=== PATIENT | female | born 1995 | race Two or more races ===

== ENCOUNTER 2018-05-15 16:33 | Observation (INO) | payer OTHER ==
[~2018-05-15] VITALS: Ht 160 cm; Wt 51.1 kg
[2018-05-15 17:17] LABS: BASOPHILS # (AUTO) 0.02 x10^3/uL (0-0.1); BASOPHILS % (AUTO) 0 % (0-1); EOSINOPHILS # (AUTO) 0.08 x10^3/uL (0-0.4); EOSINOPHILS % (AUTO) 2 % (1-7); LYMPHOCYTES # (AUTO) 1.14 x10^3/uL (1-3.4); LYMPHOCYTES % (AUTO) 32 % (22-44); MD NO; MEAN CORPUSCULAR HEMOGLOBIN 31.4 pg (27.0-34.8); MEAN CORPUSCULAR HGB CONC 34.5 g/dL (32.4-35.8); MEAN CORPUSCULAR VOLUME 91.2 fL (80-100); MEAN PLATELET VOLUME 6.8 fL (7.4-10.4); MONOCYTES # (AUTO) 0.24 x10^3/uL (0.2-0.8); MONOCYTES % (AUTO) 7 % (2-9); NEUTROPHILS # (AUTO) 2.14 x10^3/uL (1.8-6.8); NEUTROPHILS % (AUTO) 59 % (42-75); PLATELET COUNT 237 x10^3/uL (130-400); RED BLOOD COUNT 3.95 x10^6/uL (3.82-5.3); RED CELL DISTRIBUTION WIDTH 13.3 % (9.6-15.2)
[2018-05-15 17:28] LABS: ANION GAP 7 mmol/L (5-15); CALCIUM 8.4 mg/dL (8.5-10.1); CHLORIDE 108 mmol/L (98-107); CREATININE 0.69 mg/dL (0.55-1.02)
[2018-05-15] MEDS ORDERED: SODIUM CHLORIDE FLUSH 10ML SYR IVF ONE (17:30)
[2018-05-15] MEDS ORDERED: SODIUM CHLORIDE 0.9% 1,000ML IVBOLUS ONE (17:30)
[2018-05-15 17:32] LABS: MICROSCOPIC NOT IND
[2018-05-15 17:34] LABS: CULTURE INDICATED? NO
[2018-05-15] MEDS ORDERED: MORPHINE SULFATE 4 MG/ML, 1ML ONE (19:49)
[2018-05-15] MEDS ORDERED: ONDANSETRON 2MG/ML, 2ML ONE (19:49)
[2018-05-15] MEDS ORDERED: MORPHINE SULFATE 4 MG/ML, 1ML IVPush PRN ×2 (20:00→23:30)
[2018-05-15] MEDS ORDERED: ONDANSETRON 2MG/ML, 2ML IVPush ONE (20:00)
[2018-05-15] MEDS ORDERED: BUPIVACAINE/PF-EPI 0.25% 1:200K ONE (20:32)
[2018-05-15] MEDS ORDERED: FENTANYL PF 100 MCG/2ML ONE (20:35)
[2018-05-15] MEDS ORDERED: MIDAZOLAM 1 MG/ML, 2ML ONE (20:35)
[2018-05-15] MEDS ORDERED: CLINDAMYCIN 150 MG/ML, 6ML ONE (20:47)
[2018-05-15] MEDS ORDERED: SUCCINYLCHOLINE 20 MG/ML, 10ML ONE (20:55)
[2018-05-15] MEDS ORDERED: PROPOFOL 10 MG/ML, 20ML ONE (20:55)
[2018-05-15] MEDS ORDERED: BUPIVACAINE/PF-EPI 0.5% 1:200K INFIL ONE (21:22)
[2018-05-15] MEDS ORDERED: BUPIVACAINE/PF-EPI 0.25% 1:200K INFIL ONE (21:22)
[2018-05-15] MEDS ORDERED: ACETAMINOPHEN 325 MG TABLET PO PRN (21:30)
[2018-05-15] MEDS ORDERED: hydrALAzine 20 MG/ML, 1ML IV PRN (21:30)
[2018-05-15] MEDS ORDERED: LORazepam 2 MG/ML, 1ML IVPush PRN (21:30)
[2018-05-15] MEDS ORDERED: LABETALOL 5MG/ML, 20ML IV PRN (21:30)
[2018-05-15] MEDS ORDERED: MEPERIDINE/PF 25MG/0.5ML IVPush PRN (21:30)
[2018-05-15] MEDS ORDERED: FENTANYL PF 100 MCG/2ML IV PRN (21:30)
[2018-05-15] MEDS ORDERED: ALBUTEROL SULFATE 2.5 MG/3 ML NPPB PRN (21:30)
[2018-05-15] MEDS ORDERED: HYDROmorphone 1 MG/ML, 1ML IV PRN (21:30)
[2018-05-15] MEDS ORDERED: PROMETHAZINE 25 MG/ML, 1ML IV PRN (21:30)
[2018-05-15] MEDS ORDERED: OXYcodone 5 MG/5 ML ORAL.SOL UDC PO PRN ×2 (21:30→23:30)
[2018-05-15] MEDS ORDERED: ACETAMINOPHEN 650 MG/20.3 ML UDC ONE (22:00)
[2018-05-15] MEDS ORDERED: MEPERIDINE/PF 50 MG/ML ONE (22:00)
[2018-05-15] MEDS ORDERED: OXYcodone 5 MG/5 ML ORAL.SOL UDC ONE (22:00)
[2018-05-15] MEDS ORDERED: ONDANSETRON 2MG/ML, 2ML IVPush PRN (23:30)
[2018-05-15] MEDS ORDERED: LACTATED RINGERS 1,000 ML IV SCH (23:30)
[2018-05-15] MEDS ORDERED: KETOROLAC 30 MG/1 ML IV PRN (23:30)
[2018-05-15] MEDS ORDERED: DIPHENHYDRAMINE 50 MG/ML, 1ML IVPush PRN (23:30)
[2018-05-15] MEDS ORDERED: OXYC-302 PO (23:37)
[2018-05-15] MEDS ORDERED: IBUP-1222 PO (23:38)
[2018-05-15] MEDS ORDERED: DOCU-131 PO (23:39)
[2018-05-16 00:18] VITALS: BP 101/63
== END 2018-05-16 00:45 | disposition home or self-care (01) ==
LOC: ED 18:26 → EDIP 19:38 → 4NOR 22:48
PROVIDERS: ADMIT Obstetrics & Gynecology; ATTEND Obstetrics & Gynecology
DX: R10.32 Left lower quadrant pain (principal); N85.4 Malposition of uterus; K66.1 Hemoperitoneum
CPT/HCPCS: 36415; 59151; 76801; 80048; 81003; 82040; 84702; 85025; 86850; 86900; 86901; 88305; 96374; 96375; 96376; G0378; J0330; J2250; J2405; J2704; J3010; J7030; S0077